=== PATIENT | female | born 1990 ===

== ENCOUNTER → 2023-09-19 | Outpatient (CLI) | payer OTHER ==
[2023-10-03 13:08] LABS: HPV GENOTYPE 16 Not Detected; HPV GENOTYPE 18 Not Detected; HPV HIGH RISK Not Detected; HPV SOURCE Cervical
== END ==
LOC: LAB 17:17 → LAB SHORT 17:17
PROVIDERS: Registered Nurse Community Health
DX: Z12.4 Encounter for screening for malignant neoplasm of cervix (principal)
CPT/HCPCS: 87624; G0123

== ENCOUNTER → 2024-08-11 | Outpatient (CLI) | payer OTHER ==
[2024-08-11 15:54] LABS: BASOPHILS ABSOLUTE AUTO 0.05 K/mm3 (0.00-0.23); BASOPHILS PERCENT AUTO 1 % (0-2); EOSINOPHILS ABSOLUTE AUTO 0.45 K/mm3 (0.00-0.68); EOSINOPHILS PERCENT AUTO 5 % (0-6); Hematocrit 40.1 % (33.0-51.0); Hemoglobin 13.2 g/dL (11.5-16.0); IMMATURE GRAN ABSOLUTE AUTO 0.04 K/mm3 (0.00-0.10); IMMATURE GRAN PERCENT AUTO 0 % (0-1); LYMPHOCYTES PERCENT AUTO 21 % (21-46); MONOCYTES ABSOLUTE AUTO 0.66 K/mm3 (0.16-1.47); MONOCYTES PERCENT AUTO 7 % (4-13); Mean Corpuscular HGB 28.7 pg (26.0-34.0); Mean Corpuscular HGB Conc 32.9 g/dL (31.5-36.5); Mean Corpuscular Volume 87 fL (80-100); Mean Platelet Volume 9.9 fL (9.1-12.4); NEUTROPHILS ABSOLUTE AUTO 6.46 K/mm3 (1.96-9.15); NEUTROPHILS PERCENT AUTO 67 % (41-73); Platelet Count 381 K/mm3 (150-400); RDW Coefficient Variation 13.2 % (11.7-14.2); RDW Standard Deviation 42.3 fL (35.1-46.3); White Blood Cell Count 9.66 K/mm3 (4.00-11.30)
[2024-08-11 16:16] LABS: Alanine Aminotransfer (ALT/SGP 18 U/L (12-78); Albumin, Blood 3.4 g/dL (3.4-5.0); Albumin/Globulin Ratio 0.8 (0.8-1.8); Alk Phos 91 U/L (50-136); Anion Gap 10 mmol/L (3-11); Aspartate Aminotrans (AST/SGOT 12 U/L (12-37); Bilirubin, Total 0.2 mg/dL (0.1-1.0); Blood Urea Nitrogen 9 mg/dL (8-24); Bun/Creatinine Ratio 15.5 (12.0-20.0); CO2, Blood 27 mmol/L (21-32); Calcium, Blood 9.2 mg/dL (8.5-10.1); Chloride, Blood 110 mmol/L (98-108); Cholesterol 166 mg/dL (50-200); Creatinine, Blood 0.58 mg/dL (0.40-1.00); Ferritin, Serum 20 ng/mL (8-252); Free Thyroxine 1.06 ng/dL (0.70-1.60); Glomerular Filtration Rate 122 (60-); Glucose, Blood 100 mg/dL (70-99); HDL Cholesterol 55 mg/dL (>39); Iron Serum 36 ug/dL (50-170); LDL/HDL RATIO 1.6; Low Density Lipoprotein Chol 90 mg/dL (0-110); Percent Saturation 10.1 % (15.0-50.0); Potassium, Blood 3.7 mmol/L (3.5-5.5); Sodium, Blood 143 mmol/L (136-145); Total Iron Binding Capacity 357 ug/dL (250-450); Total Protein, Blood 7.4 g/dL (6.4-8.2); Triglycerides 103 mg/dL (30-140); Triiodothyronine, Free 2.75 pg/mL (2.18-3.98); Very Low Density Lipoprot Chol 20 mg/dL (6-28)
[2024-08-12 15:20] LABS: THYROID PEROXIDASE (TPO) AB 0.9 IU/mL (0.0-9.0)
[2024-08-12 15:57] LABS: THYROGLOBULIN ANTIBODY <0.9 IU/mL (0.0-4.0)
== END | disposition home or self-care (01) ==
LOC: LAB SHORT 11:25 → LAB 11:25
PROVIDERS: Nurse Practitioner Family
DX: Z13.220 Encounter for screening for lipoid disorders (principal); D50.9 Iron deficiency anemia, unspecified; E55.9 Vitamin D deficiency, unspecified; E66.9 Obesity, unspecified; R53.81 Other malaise; R53.83 Other fatigue
CPT/HCPCS: 80053; 80061; 82306; 82728; 83036; 83540; 83550; 84439; 84443; 84481; 85025; 86376; 86800

== ENCOUNTER 2025-07-30 08:37 | Day surgery (SDC) | payer BC, OTHER ==
[~2025-07-30] VITALS: Ht 165.1 cm; Wt 136.0 kg
[2025-07-30] VITALS (10 sets, daily range): BP systolic 152–171; BP diastolic 73–91
[~2025-07-30 08:37] MED LIST: ALBU90OI INH; CeFAZolin Sodium 2,000 MG in NS 100 ML IV SCH; CeFAZolin Sodium 3,000 MG in NS 100 ML IV SCH; LORA10ER PO; Methocarbamol500 MG PO; TRAZ50 PO
[2025-07-30] MEDS ORDERED: Dexamethasone Sod Phos 10 MG/ML 1ML VIAL ONE (08:43)
[2025-07-30] MEDS ORDERED: FentaNYL Citrate 50 MCG/ML 2 ML Injection ONE (08:43)
[2025-07-30] MEDS ORDERED: Rocuronium Bromide 10 MG/ML 5ML Injection IV ONE (08:43)
[2025-07-30] MEDS ORDERED: Ondansetron HCl 2 MG / ML 2ML Vial ONE (08:43)
[2025-07-30] MEDS ORDERED: Midazolam HCl 1MG / ML 2ML Vial ONE (08:43)
[2025-07-30] MEDS ORDERED: Bupivacaine 0.5% W/EPI 1:200000 SDV 30 ML Vial ONE (09:11)
[2025-07-30] MEDS ORDERED: CeFAZolin Sodium 3,000 MG in NS 100 ML IV SCH ×2 (09:25→16:00)
--- NOTE | 2025-07-30 09:31 | NUR ---
History, Chart, Medications and Allergies reviewed before start of procedure.Patient confirms NPO status and agrees with scheduled surgery. Pre-Op teaching done. Pt verbalizes understanding.MOTHER AT BEDSIDE
[2025-07-30] MEDS ORDERED: CeFAZolin Sodium 3,000 MG VIAL ONE (09:32)
[2025-07-30] MEDS ORDERED: Albuterol HFA200 ACT/6.7 GM INH INH PRN (10:05)
[2025-07-30] MEDS ORDERED: FentaNYL Citrate 50 MCG/ML 2 ML Injection IV PRN ×2 (10:15)
[2025-07-30] MEDS ORDERED: HYDROmorphone HCl/Pf 1MG SYR IV PRN ×3 (10:15→12:20)
[2025-07-30] MEDS ORDERED: Ondansetron HCl 2 MG / ML 2ML Vial IV PRN ×2 (10:15→12:20)
[2025-07-30] MEDS ORDERED: HydrALAZINE HCl 20 MG / ML 1ML Vial IV PRN (10:15)
[2025-07-30] MEDS ORDERED: ePHEDrine Sulfate 50 MG/ML 1ML Injection IV PRN (10:15)
[2025-07-30] MEDS ORDERED: Albuterol 2.5 MG/3 ML VIAL INH PRN (10:20)
[2025-07-30] MEDS ORDERED: ePHEDrine Sulfate 50 MG/ML 1ML Injection ONE (10:23)
[2025-07-30] MEDS ORDERED: Ketorolac Tromethamine 30mg Vial ONE (11:52)
[2025-07-30] MEDS ORDERED: Sugammadex Sodium 200 MG/2ML SDV (100 MG/ML) ONE (11:53)
[2025-07-30] MEDS ORDERED: HYDROmorphone HCl/Pf 1MG SYR ONE (11:53)
[2025-07-30] MEDS ORDERED: FLU VACC TS2025-26(6MOS UP)/PF 45 MCG/0.5 ML SYRINGE IM SCH (12:15)
[2025-07-30] MEDS ORDERED: Naloxone HCl 0.4MG / ML 1ML Vial IV PRN (12:20)
[2025-07-30] MEDS ORDERED: OxyCODONE 5 mg/Acetamin 325 mg TABLET PO PRN (12:25)
[2025-07-30] MEDS ORDERED: Ketorolac Tromethamine 30mg Vial IV PRN (12:30)
--- NOTE | 2025-07-30 18:03 | NUR ---
DISCHARGE SUMMARY POD0 LAVH, A/OX4, VSS, TOLERATING PO, PAIN WELL MANAGED, VOIDING INDEPENDENTLY, AMBULATING WITHOUT ASSISTANCE, EXPRESSED DESIRE TO GO HOME. DISCUSSED DISCHARGE INSTRUCTIONS WITH HER INCLUDING HOME CARE, MEDICATIONS, AND FOLLOW UP APPOINTMENTS. IV ACCESS REMOVED, ESCORTED OUT VIA WC TO PRIVATE AUTO TO GO HOME.
== END 2025-07-30 16:42 | disposition home or self-care (01) ==
LOC: ORSCMMR 08:37 → ORD 10:30 → ORSCMMR 10:30 → SURS 12:57 → ORSCMMR 16:42 → SURS 16:42
PROVIDERS: Obstetrics & Gynecology
PROC: 0UT9FZZ Resection of Uterus, Via Natural or Artificial Opening With Percutaneous Endoscopic Assistance (ICD-10-PCS; principal; 2025-07-30 10:30)
PROC: 0UT0FZZ Resection of Right Ovary, Via Natural or Artificial Opening With Percutaneous Endoscopic Assistance (ICD-10-PCS; principal; 2025-07-30 10:30)
PROC: 0UT7FZZ Resection of Bilateral Fallopian Tubes, Via Natural or Artificial Opening With Percutaneous Endoscopic Assistance (ICD-10-PCS; principal; 2025-07-30 10:30)
DX: N92.0 Excessive and frequent menstruation with regular cycle (principal); N80.9 Endometriosis, unspecified; N80.203 Endometriosis of bilateral fallopian tubes, unspecified depth; R10.20 Pelvic and perineal pain unspecified side; E66.01 Morbid (severe) obesity due to excess calories; Z68.42 Body mass index [BMI] 45.0-49.9, adult; N83.12 Corpus luteum cyst of left ovary; N80.101 Endometriosis of right ovary, unspecified depth; N73.6 Female pelvic peritoneal adhesions (postinfective); J45.909 Unspecified asthma, uncomplicated; Z79.899 Other long term (current) drug therapy
CPT/HCPCS: 86850; 86900; 86901; 88307; A9270; J0690; J1100; J1171; J1885; J2250; J2405; J2704; J3010; J7120